=== PATIENT | male | born 1990 | race Asian ===

== ENCOUNTER 2017-02-20 17:08 | Emergency (ER) | payer OTHER, BC ==
[~2017-02-20] VITALS: Ht 167.6 cm; Wt 80.7 kg
[2017-02-20 17:09] VITALS: BP 131/73
[2017-02-20] MEDS ORDERED: AUGM875T27 PO (17:34)
[2017-02-20] MEDS ORDERED: AUGMENTIN 875 MG TAB PO ONE (17:45)
== END 2017-02-20 18:56 | disposition home or self-care (01) ==
LOC: M ED 17:43
DX: S60.571A Other superficial bite of hand of right hand, initial encounter (principal); W55.01XA Bitten by cat, initial encounter; Y92.018 Other place in single-family (private) house as the place of occurrence of the external cause; Y93.89 Activity, other specified; Y99.8 Other external cause status